=== PATIENT | male | born 1965 | race Caucasian/White ===

== ENCOUNTER 2018-11-06 16:56 | Observation (INO) | payer OTHER ==
--- NOTE | 2018-11-06 17:09 | EDM.PDOC ---
ED HPI GENERAL MEDICAL PROBLEM - General Chief Complaint: Lower Extremity Injury/Pain Stated Complaint: RIGHT LEG INJURY Time Seen by Provider: 11/06/18 17:09 Source of Information: Reports: Patient History Limitations: Reports: No Limitations - History of Present Illness INITIAL COMMENTS - FREE TEXT/NARRATIVE: HISTORY AND PHYSICAL: History of present illness: Patient is a 53-year-old male who presents to the emergency room with complaints of right lower extremity injury. He states last Saturday he had fallen on the ice landing on his right knee. He states he thought nothing of it but then to 3 days later he noticed some soft tissue swelling and pain below the right patella along the proximal tib-fib area. He associated this with his previous fall. He does have some swelling of the right lower extremity and enlarged lymph nodes in the right groin. He is weightbearing without any difficulty or deficits although it does cause some soft tissue pain at the site. He denies any fever, chills, chest pain, shortness of breath or cough. Denies any abdominal pain, nausea, vomiting, diarrhea, constipation or dysuria. Denies any previous history of diabetes or any complications or surgeries of the affected extremity. Review of systems: As per history of present illness and below otherwise all systems reviewed and negative. Past medical history: As per history of present illness and as reviewed below otherwise noncontributory. Surgical history: As per history of present illness and as reviewed below otherwise noncontributory. Social history: See social history for further information Family history: As per history of present illness and as reviewed below otherwise noncontributory. Physical exam: General: Well-developed and well-nourished 53-year-old male. Alert and oriented. Nontoxic appearing and in no acute distress. HEENT: Atraumatic, normocephalic, pupils equal and reactive bilaterally, negative for conjunctival pallor or scleral icterus, mucous membranes moist, TMs normal bilaterally, throat clear, neck supple, nontender, trachea midline. No drooling or trismus noted. No meningeal signs. No hot potato voice noted. Lungs: Clear to auscultation, breath sounds equal bilaterally, chest nontender. Heart: S1S2, regular rate and rhythm without overt murmur Abdomen: Soft, nondistended, nontender. Negative for masses or hepatosplenomegaly. Negative for costovertebral tenderness. Pelvis: Stable nontender. Genitourinary: Deferred. Rectal: Deferred. Skin: See EXTREMITY for details. Otherwise skin is intact, warm, dry. No lesions or rashes noted. Extremities: Moves all extremities per self without difficulty or deficits. He has no tenderness of the patella or popliteal surface. There is a localized area to the proximal tib-fib on the right inner leg which is swollen, warm to touch and erythematous. There is diffuse pinkish erythema of the surrounding tissue going into the calf and inner upper medial thigh. He has strong pedal pulse and pretibial pulses. Mild enlarged lymph node with tenderness to the right groin. He is negative for cords or calf pain. Neurovascular unremarkable. Neuro: Awake, alert, oriented. Cranial nerves II through XII unremarkable. Cerebellum unremarkable. Motor and sensory unremarkable throughout. Exam nonfocal. Notes: Dr. Garduno/Sean was consulted on this case. Dr Estrada came in and evaluated this patient. He will be admitted for observation for cellulitis treatment. Sean will enter antibiotic orders. Patient is aware and agreeable. Denies any further questions or concerns at this time Diagnostics: CBC, CMP, blood cultures 2, right knee x-ray Therapeutics: IV fluid, morphine, Zofran Impression: Cellulitis Plan: Observation admission to med/surg Definitive disposition and diagnosis as appropriate pending reevaluation and review of above. Duration: Day(s): - Related Data Allergies Allergy/AdvReac Type Severity Reaction Status Date / Time No Known Allergies Allergy Verified 11/06/18 17:15 Home Meds: Home Meds . [No Known Home Meds] 11/06/18 [History] Review of Systems - Review of Systems Review Of Systems: ROS reveals no pertinent complaints other than HPI. ED EXAM, GENERAL - Physical Exam Exam: See Below (See dication) Course - Vital Signs Last Recorded V/S: Last Vital Signs Temp 99.7 F 11/06/18 17:06 Pulse 84 11/06/18 17:06 Resp 20 11/06/18 17:06 BP 113/66 11/06/18 17:06 Pulse Ox 99 11/06/18 17:06 - Orders/Labs/Meds Orders: Active Orders 24 hr Category Date Time Status Admission Status [Patient Status] [ADT] Stat ADT 11/06/18 18:13 Active Communication Order [RC] STAT Care 11/06/18 17:28 Active COMPREHENSIVE METABOLIC PN,CMP [CHEM] Stat Lab 11/06/18 17:47 Received CULTURE BLOOD [BC] Stat Lab 11/06/18 17:27 Ordered CULTURE BLOOD [BC] Stat Lab 11/06/18 17:47 Received Sodium Chloride 0.9% [Normal Saline] 1,000 ml Med 11/06/18 17:27 Active IV STAT Blood Culture x2 Reflex Set [OM.PC] Stat Oth 11/06/18 17:27 Ordered Medication Orders Sodium Chloride (Normal Saline) 1,000 mls @ 999 mls/hr IV STAT ONE Stop: 11/06/18 18:27 Last Admin: 11/06/18 17:54 Dose: 999 mls/hr Labs: Laboratory Tests 11/06/18 Range/Units 17:47 WBC 12.34 H (4.0-11.0) K/uL RBC 4.90 (4.50-5.90) M/uL Hgb 14.7 (13.0-17.0) g/dL Hct 43.4 (38.0-50.0) % MCV 88.6 (80.0-98.0) fL MCH 30.0 (27.0-32.0) pg MCHC 33.9 (31.0-37.0) g/dL RDW Std Deviation 41.7 (28.0-62.0) fl RDW Coeff of Christina 13 (11.0-15.0) % Plt Count 285 (150-400) K/uL MPV 9.40 (7.40-12.00) fL Neut % (Auto) 71.5 (48.0-80.0) % Lymph % (Auto) 19.7 (16.0-40.0) % [place] % (Auto) 7.5 (0.0-15.0) % Eos % (Auto) 1.1 (0.0-7.0) % Baso % (Auto) 0.2 (0.0-1.5) % Neut # (Auto) 8.8 H (1.4-5.7) K/uL Lymph # (Auto) 2.4 (0.6-2.4) K/uL [place] # (Auto) 0.9 H (0.0-0.8) K/uL Eos # (Auto) 0.1 (0.0-0.7) K/uL Baso # (Auto) 0.0 (0.0-0.1) K/uL Nucleated RBC % 0.0 /100WBC Nucleated RBCs # 0 K/uL Meds: Medications Generic Name Dose Route Start Last Admin Trade Name Justine PRN Reason Stop Dose Admin Sodium Chloride 1,000 mls @ 999 mls/hr 11/06/18 17:27 11/06/18 17:54 Normal Saline IV 11/06/18 18:27 999 mls/hr STAT ONE Administration Discontinued Medications Generic Name Dose Route Start Last Admin Trade Name Justine PRN Reason Stop Dose Admin Morphine Sulfate 4 mg 11/06/18 17:27 11/06/18 17:52 Morphine IVPUSH 11/06/18 17:28 4 mg ONETIME ONE Administration Ondansetron HCl 4 mg 11/06/18 17:27 11/06/18 17:53 Zofran IVPUSH 11/06/18 17:28 4 mg ONETIME ONE Administration Departure - Departure Time of Disposition: 18:17 Disposition: Home, Self-Care 01 Clinical Impression: Cellulitis Qualifiers: Site of cellulitis: extremity Site of cellulitis of extremity: lower extremity Laterality: right Qualified Code(s): L03.115 - Cellulitis of right lower limb - Discharge Information Referrals: PCP,None [Primary Care Provider] - Forms: ED Department Discharge - My Orders Last 24 Hours: My Active Orders 11/06/18 17:27 CULTURE BLOOD [BC] Stat Sodium Chloride 0.9% [Normal Saline] 1,000 ml IV STAT Blood Culture x2 Reflex Set [OM.PC] Stat 11/06/18 17:28 Communication Order [RC] STAT 11/06/18 17:47 COMPREHENSIVE METABOLIC PN,CMP [CHEM] Stat CULTURE BLOOD [BC] Stat 11/06/18 18:13 Admission Status [Patient Status] [ADT] Stat - Assessment/Plan Last 24 Hours: My Active Orders 11/06/18 17:27 CULTURE BLOOD [BC] Stat Sodium Chloride 0.9% [Normal Saline] 1,000 ml IV STAT Blood Culture x2 Reflex Set [OM.PC] Stat 11/06/18 17:28 Communication Order [RC] STAT 11/06/18 17:47 COMPREHENSIVE METABOLIC PN,CMP [CHEM] Stat CULTURE BLOOD [BC] Stat 02/07/19 18:13 Admission Status [Patient Status] [ADT] Stat
[2018-11-06] MEDS ORDERED: Sodium Chloride 0.9% 1,000 ML IV ONE (17:27)
[2018-11-06] MEDS ORDERED: Morphine 4 MG/ML Syringe IVPUSH ONE (17:27)
[2018-11-06] MEDS ORDERED: Ondansetron 4 MG/2 ML SDV IVPUSH ONE (17:27)
--- NOTE | 2018-11-06 18:07 | CR ---
Indication: Fell October 31, 2018, now with redness, swelling, and fever Technique: Three views right knee Comparison: Nine Findings: Bones: Alignment is normal. No fractures or bone lesions. Joint spaces: Unremarkable. Soft tissues: Mild soft tissue swelling anteriorly. Impression: Mild anterior soft tissue swelling. No acute osseous abnormality or suprapatellar effusion.. Dictated by Heather Mcgraw MD @ Nov 06 2018 6:04PM Signed by Dr. Heather Mcgraw @ Nov 06 2018 6:06PM
[2018-11-06 18:22] LABS: CHLORIDE,CL 102 mmol/L (98-107); SODIUM,NA 138 mmol/L (136-148)
[2018-11-06] MEDS ORDERED: Enoxaparin 40 MG/0.4 ML Syringe SUBCUT SCH (18:30)
[2018-11-06] MEDS ORDERED: Nicotine 7 MG/24 Hr Patch TRDERM SCH (18:30)
[2018-11-06] MEDS ORDERED: cefTRIAXone 1 GM in Premix Bag 1 BAG IV SCH (18:30)
[2018-11-06] MEDS: Sodium Chloride 0.9% 1,000 ML IV SCH (18:56)
--- NOTE | 2018-11-06 19:15 | PCM.HP ---
<Bashir Estrada - Last Filed: 11/06/18 19:11> H&P History of Present Illness - General Date of Service: 11/06/18 Admit Problem/Dx: Admission Diagnosis/Problem Admission Diagnosis/Problem Cellulitis Source of Information: Patient History Limitations: Reports: No Limitations - History of Present Illness Initial Comments - Free Text/Narative: 53M hx of tobacco abuse presented to the ER w/ complaint of right anterior leg pain x2-3 days. He tells me that he had a slip and fall 3 days ago outside on ice and since then been getting worsening pain. Denies any head trauma or LOC. Complains of subjective fever. Denies any hx of cellulitis, IVDA, infectious history. Denies pain at the knee, is able to walk without issue. Denies numbness or tingling. - Related Data Allergies/Adverse Reactions: Allergies Allergy/AdvReac Type Severity Reaction Status Date / Time No Known Allergies Allergy Verified 11/07/18 00:10 Home Medications: Home Meds . [No Known Home Meds] 11/06/18 [History] Past Medical History - Past Health History Medical/Surgical History: Denies Medical/Surgical History - Infectious Disease History Infectious Disease History: Reports: Chicken Pox, Shingles - Past Surgical History Musculoskeletal Surgical History: Reports: Other (See Below) Other Musculoskeletal Surgeries/Procedures:: R shoulder rotar cuff sx Social & Family History - Tobacco Use Smoking Status *Q: Current Every Day Smoker Years of Tobacco use: 40 Packs/Tins Daily: 0.2 - Recreational Drug Use Recreational Drug Use: No H&P Review of Systems - Review of Systems: Review Of Systems: See Below General: Reports: Other (mild subjective fever) HEENT: Reports: No Symptoms Pulmonary: Reports: No Symptoms Cardiovascular: Reports: No Symptoms Gastrointestinal: Reports: No Symptoms Genitourinary: Reports: No Symptoms Musculoskeletal: Reports: Leg Pain, Other (see hpi) Skin: Reports: Erythema Psychiatric: Reports: No Symptoms Neurological: Reports: No Symptoms Hematologic/Lymphatic: Reports: No Symptoms Immunologic: Reports: No Symptoms Exam - Exam Exam: See Below - Vital Signs Vital Signs: Last Vital Signs Temp 37.6 C 11/06/18 17:06 Pulse 84 11/06/18 17:06 Resp 20 11/06/18 17:06 BP 113/66 11/06/18 17:06 Pulse Ox 99 02/07/19 17:06 Weight: 77.2 kg - Exam General: Alert, Oriented, 4 HEENT: PERRLA, Hearing Intact, Mucosa Moist & [place], Nares Patent, Normal Nasal Septum, Posterior Pharynx Clear, Conjunctiva Clear, EOMI, EACs Clear, TMs Clear Neck: Supple, Trachea Midline, 2 Lungs: Clear to Auscultation, Normal Respiratory Effort Cardiovascular: Regular Rate, Regular Rhythm GI/Abdominal Exam: Normal Bowel Sounds, Soft, Non-Tender, No Organomegaly, No Distention, No Abnormal Bruit, No Mass, Pelvis Stable Back Exam: Normal Inspection, Full Range of Motion, NT Extremities: Other (anterior aspect of leg has erythema extending distally starting below the knee. Not involving the knee. Tender to palpation, is flat, no abscess formation. No calf tenderness. Able to flex at the knee without complaints. No pedal edema. Sensation in feet intact. Dorsalis pedis pulse 2+) Peripheral Pulses: 2+: Dorsalis Pedis (L), Dorsalis Pedis (R) Skin: Other (see extremities ) Neurological: Cranial Nerves Intact, Reflexes Equal Bilateral Neuro Extensive - Mental Status: Alert, Oriented x3, Normal Mood/Affect, Normal Cognition Neuro Extensive - Motor, Sensory, Reflexes: CN II-XII Intact, Normal Gait, Normal Reflexes DTR: 2+: Patella (L), Patella (R), Achilles (L), Achilles (R) Psychiatric: Alert, Normal Affect, Normal Mood - Patient Data Lab Results Last 24 hrs: Laboratory Results - last 24 hr 11/06/18 11/06/18 Range/Units 17:47 17:47 WBC 12.34 H (4.0-11.0) K/uL RBC 4.90 (4.50-5.90) M/uL Hgb 14.7 (13.0-17.0) g/dL Hct 43.4 (38.0-50.0) % MCV 88.6 (80.0-98.0) fL MCH 30.0 (27.0-32.0) pg MCHC 33.9 (31.0-37.0) g/dL RDW Std Deviation 41.7 (28.0-62.0) fl RDW Coeff of Christina 13 (11.0-15.0) % Plt Count 285 (150-400) K/uL MPV 9.40 (7.40-12.00) fL Neut % (Auto) 71.5 (48.0-80.0) % Lymph % (Auto) 19.7 (16.0-40.0) % [place] % (Auto) 7.5 (0.0-15.0) % Eos % (Auto) 1.1 (0.0-7.0) % Baso % (Auto) 0.2 (0.0-1.5) % Neut # (Auto) 8.8 H (1.4-5.7) K/uL Lymph # (Auto) 2.4 (0.6-2.4) K/uL [place] # (Auto) 0.9 H (0.0-0.8) K/uL Eos # (Auto) 0.1 (0.0-0.7) K/uL Baso # (Auto) 0.0 (0.0-0.1) K/uL Nucleated RBC % 0.0 /100WBC Nucleated RBCs # 0 K/uL Sodium 138 (136-148) mmol/L Potassium 4.5 (3.5-5.1) mmol/L Chloride 102 (98-107) mmol/L Carbon Dioxide 26.7 (21.0-32.0) mmol/L BUN 12 (7.0-18.0) mg/dL Creatinine 1.1 (0.8-1.3) mg/dL Est Cr Clr Drug Dosing 81.11 mL/min Estimated GFR (MDRD) > 60.0 ml/min Glucose 95 (74-106) mg/dL Calcium 9.0 (8.5-10.1) mg/dL Total Bilirubin 0.5 (0.2-1.0) mg/dL AST 30 (15-37) IU/L ALT 75 H (14-63) IU/L Alkaline Phosphatase 76 (46-116) U/L Total Protein 6.8 (6.4-8.2) g/dL Albumin 3.1 L (3.4-5.0) g/dL Globulin 3.7 (2.6-4.0) g/dL Albumin/Globulin Ratio 0.8 L (0.9-1.6) Result Diagrams: 11/06/18 17:47 11/06/18 17:47 Problem List Initiated/Reviewed/Updated: Yes Orders Last 24hrs: Active Orders 24 hr Category Date Time Status Admission Status [Patient Status] [ADT] Stat ADT 11/06/18 18:13 Active Communication Order [RC] STAT Care 11/06/18 17:28 Active Oxygen Therapy [RC] PRN Care 11/06/18 18:20 Active Up ad Maryellen [RC] ASDIRECTED Care 11/06/18 18:19 Active VTE/DVT Education [RC] PER UNIT ROUTINE Care 11/06/18 18:20 Active Vital Signs [RC] Q4H Care 11/06/18 18:20 Active Regular Diet [DIET] Diet 11/06/18 Lunch Active BASIC METABOLIC PANEL,BMP [CHEM] AM Lab 11/07/18 05:11 Ordered CBC WITH AUTO DIFF [HEME] AM Lab 11/07/18 05:11 Ordered CULTURE BLOOD [BC] Stat Lab 11/06/18 17:47 Received CULTURE BLOOD [BC] Stat Lab 11/06/18 17:59 Received Acetaminophen [Tylenol] Med 11/06/18 18:19 Active 650 mg PO Q4H PRN Enoxaparin [Lovenox] Med 11/06/18 18:30 Active 40 mg SUBCUT Q24H Nicotine [Habitrol] Med 11/06/18 18:30 Active 7 mg TRDERM DAILY Sodium Chloride 0.9% [Normal Saline] 1,000 ml Med 11/06/18 18:30 Active IV ASDIRECTED cefTRIAXone [Rocephin in Dextrose,Iso-Osm 1 GM/50 ML] 1 Med 11/06/18 18:30 Active gm Premix Bag 1 bag IV DAILY oxyCODONE Med 11/06/18 18:19 Active 5 mg PO Q4H PRN Blood Culture x2 Reflex Set [OM.PC] Stat Oth 11/06/18 17:27 Ordered Resuscitation Status Routine Resus Stat 11/06/18 18:19 Ordered Medication Orders Acetaminophen (Tylenol) 650 mg PO Q4H PRN PRN Reason: Pain (Mild 1-3)/fever Enoxaparin Sodium (Lovenox) 40 mg SUBCUT Q24H [facility] Last Admin: 11/06/18 18:57 Dose: 40 mg Ceftriaxone Sodium/Dextrose 1 (gm/ Premix) 50 mls @ 100 mls/hr IV DAILY [facility] Last Admin: 11/06/18 18:56 Dose: 100 mls/hr Sodium Chloride (Normal Saline) 1,000 mls @ 100 mls/hr IV ASDIRECTED [facility] Last Admin: 11/06/18 18:56 Dose: 100 mls/hr Nicotine (Habitrol) 7 mg TRDERM DAILY [facility] Oxycodone HCl (Oxycodone) 5 mg PO Q4H PRN PRN Reason: Pain (moderate 4-6) Assessment/Plan Comment:: Assessment: #1. R leg cellulitis #2. Leukocytosis #3. Mild fever Plan: #1. Admit for observation. Vitals per floor. Lovenox for DVT Prophylaxis. Regular diet #2. IV rocephin 1g q24h #3. Pain meds as ordered #4. Repeat cbc, bmp tomorrow AM #5. Anticipate dc 1-2 days. <Maksim Garduno - Last Filed: 11/07/18 07:45> H&P History of Present Illness - General Admit Problem/Dx: Admission Diagnosis/Problem Admission Diagnosis/Problem Cellulitis I have seen and examined the patient independently of Karla Estrada MD, biomedical equipment specialist.I have discussed the case with the resident. I agree with the assessment and plan of care as outlined for this patient. Please see orders. Patient here with cellulitis of lower extremity. Right Knee Pain Score (Numeric/FACES): 7 Exam - Vital Signs Vital Signs: Last Vital Signs Temp 37.8 C 11/07/18 04:30 Pulse 79 11/07/18 04:20 Resp 22 H 11/07/18 04:20 BP 117/74 11/07/18 04:20 Pulse Ox 99 11/07/18 04:20 - Patient Data Lab Results Last 24 hrs: Laboratory Results - last 24 hr 11/06/18 11/06/18 11/07/18 Range/Units 17:47 17:47 05:25 WBC 12.34 H 12.83 H (4.0-11.0) K/uL RBC 4.90 4.57 (4.50-5.90) M/uL Hgb 14.7 13.6 (13.0-17.0) g/dL Hct 43.4 41.0 (38.0-50.0) % MCV 88.6 89.7 (80.0-98.0) fL MCH 30.0 29.8 (27.0-32.0) pg MCHC 33.9 33.2 (31.0-37.0) g/dL RDW Std Deviation 41.7 42.9 (28.0-62.0) fl RDW Coeff of Christina 13 13 (11.0-15.0) % Plt Count 285 264 (150-400) K/uL MPV 9.40 9.30 (7.40-12.00) fL Neut % (Auto) 71.5 74.3 (48.0-80.0) % Lymph % (Auto) 19.7 15.6 L (16.0-40.0) % [place] % (Auto) 7.5 8.3 (0.0-15.0) % Eos % (Auto) 1.1 1.6 (0.0-7.0) % Baso % (Auto) 0.2 0.2 (0.0-1.5) % Neut # (Auto) 8.8 H 9.5 H (1.4-5.7) K/uL Lymph # (Auto) 2.4 2.0 (0.6-2.4) K/uL [place] # (Auto) 0.9 H 1.1 H (0.0-0.8) K/uL Eos # (Auto) 0.1 0.2 (0.0-0.7) K/uL Baso # (Auto) 0.0 0.0 (0.0-0.1) K/uL Nucleated RBC % 0.0 0.0 /100WBC Nucleated RBCs # 0 0 K/uL Sodium 138 (136-148) mmol/L Potassium 4.5 (3.5-5.1) mmol/L Chloride 102 (98-107) mmol/L Carbon Dioxide 26.7 (21.0-32.0) mmol/L BUN 12 (7.0-18.0) mg/dL Creatinine 1.1 (0.8-1.3) mg/dL Est Cr Clr Drug Dosing 81.11 mL/min Estimated GFR (MDRD) > 60.0 ml/min Glucose 95 (74-106) mg/dL Calcium 9.0 (8.5-10.1) mg/dL Total Bilirubin 0.5 (0.2-1.0) mg/dL AST 30 (15-37) IU/L ALT 75 H (14-63) IU/L Alkaline Phosphatase 76 (46-116) U/L Total Protein 6.8 (6.4-8.2) g/dL Albumin 3.1 L (3.4-5.0) g/dL Globulin 3.7 (2.6-4.0) g/dL Albumin/Globulin Ratio 0.8 L (0.9-1.6) 11/07/18 Range/Units 05:25 WBC (4.0-11.0) K/uL RBC (4.50-5.90) M/uL Hgb (13.0-17.0) g/dL Hct (38.0-50.0) % MCV (80.0-98.0) fL MCH (27.0-32.0) pg MCHC (31.0-37.0) g/dL RDW Std Deviation (28.0-62.0) fl RDW Coeff of Christina (11.0-15.0) % Plt Count (150-400) K/uL MPV (7.40-12.00) fL Neut % (Auto) (48.0-80.0) % Lymph % (Auto) (16.0-40.0) % [place] % (Auto) (0.0-15.0) % Eos % (Auto) (0.0-7.0) % Baso % (Auto) (0.0-1.5) % Neut # (Auto) (1.4-5.7) K/uL Lymph # (Auto) (0.6-2.4) K/uL [place] # (Auto) (0.0-0.8) K/uL Eos # (Auto) (0.0-0.7) K/uL Baso # (Auto) (0.0-0.1) K/uL Nucleated RBC % /100WBC Nucleated RBCs # K/uL Sodium 138 (136-148) mmol/L Potassium 4.6 (3.5-5.1) mmol/L Chloride 105 (98-107) mmol/L Carbon Dioxide 27.5 (21.0-32.0) mmol/L BUN 11 (7.0-18.0) mg/dL Creatinine 1.1 (0.8-1.3) mg/dL Est Cr Clr Drug Dosing 81.11 mL/min Estimated GFR (MDRD) > 60.0 ml/min Glucose 112 H (74-106) mg/dL Calcium 8.1 L (8.5-10.1) mg/dL Total Bilirubin (0.2-1.0) mg/dL AST (15-37) IU/L ALT (14-63) IU/L Alkaline Phosphatase (46-116) U/L Total Protein (6.4-8.2) g/dL Albumin (3.4-5.0) g/dL Globulin (2.6-4.0) g/dL Albumin/Globulin Ratio (0.9-1.6) Result Diagrams: 11/07/18 05:25 11/07/18 05:25 Orders Last 24hrs: Active Orders 24 hr Category Date Time Status Admission Status [Patient Status] [ADT] Stat ADT 11/06/18 18:13 Active Oxygen Therapy [RC] PRN Care 11/06/18 18:20 Active Up ad Maryellen [RC] ASDIRECTED Care 11/06/18 18:19 Active Regular Diet [DIET] Diet 11/06/18 Lunch Active CULTURE BLOOD [BC] Stat Lab 11/06/18 17:47 Received CULTURE BLOOD [BC] Stat Lab 11/06/18 17:59 Received Acetaminophen [Tylenol] Med 11/06/18 18:19 Active 650 mg PO Q4H PRN Enoxaparin [Lovenox] Med 11/06/18 18:30 Active 40 mg SUBCUT Q24H Nicotine [Habitrol] Med 11/06/18 18:30 Active 7 mg TRDERM DAILY Sodium Chloride 0.9% [Normal Saline] 1,000 ml Med 11/06/18 18:30 Active IV ASDIRECTED cefTRIAXone [Rocephin in Dextrose,Iso-Osm 1 GM/50 ML] 1 Med 11/06/18 18:30 Active gm Premix Bag 1 bag IV DAILY oxyCODONE Med 11/06/18 18:19 Active 5 mg PO Q4H PRN Blood Culture x2 Reflex Set [OM.PC] Stat Oth 11/06/18 17:27 Ordered Resuscitation Status Routine Resus Stat 11/06/18 18:19 Ordered Medication Orders Acetaminophen (Tylenol) 650 mg PO Q4H PRN PRN Reason: Pain (Mild 1-3)/fever Last Admin: 11/07/18 04:30 Dose: 650 mg Enoxaparin Sodium (Lovenox) 40 mg SUBCUT Q24H [facility] Last Admin: 11/06/18 18:57 Dose: 40 mg Ceftriaxone Sodium/Dextrose 1 (gm/ Premix) 50 mls @ 100 mls/hr IV DAILY [facility] Last Admin: 11/06/18 18:56 Dose: 100 mls/hr Sodium Chloride (Normal Saline) 1,000 mls @ 100 mls/hr IV ASDIRECTED [facility] Last Admin: 11/07/18 04:18 Dose: 100 mls/hr Infusion: 11/07/18 04:18 Dose: 100 mls/hr Admin: 11/06/18 18:56 Dose: 100 mls/hr Nicotine (Habitrol) 7 mg TRDERM DAILY [facility] Last Admin: 11/06/18 21:03 Dose: Not Given Oxycodone HCl (Oxycodone) 5 mg PO Q4H PRN PRN Reason: Pain (moderate 4-6) Last Admin: 11/07/18 04:16 Dose: 5 mg Admin: 11/06/18 21:07 Dose: 5 mg
[2018-11-06] MEDS: oxyCODONE 5 MG Tab PO PRN (21:07)
[2018-11-07] MEDS: oxyCODONE 5 MG Tab PO PRN ×2 (04:16→08:25)
[2018-11-07] MEDS: Sodium Chloride 0.9% 1,000 ML IV SCH (04:18)
[2018-11-07] MEDS: Acetaminophen 325 MG Tab PO PRN ×2 (04:30→11:39)
[2018-11-07 05:59] LABS: CHLORIDE,CL 105 mmol/L (98-107); SODIUM,NA 138 mmol/L (136-148)
--- NOTE | 2018-11-07 11:46 | PCM.DCSUM1 ---
<Bashir Estrada - Last Filed: 11/07/18 11:43> Discharge Summary - Hospital Course Free Text/Narrative:: Admission date: 11/06/2018 Discharge date: 11/07/2018 Admission diagnosis: #1. R leg cellulitis #2. Mild leukocytosis #3. Subjective fever Discharge diagnosis: #1. R leg cellulitis - improving #2. Mild leukocytosis #3. Subjective fever - resolved Hospital course: 53M with hx of tobacco abuse, recent fall who was admitted for R leg pain found to have a R leg cellulitis involving the anterior aspect of the leg distal to the knee. A pen line was drawn at the time of presentation. Patient was admitted and treated w/ IV rocephin, fluids, pain control. The next morning, the patients pain had subsided, he denied any fever, and the extent of the erythema had decreased considerably. I discharged this patient home with return precautions including worsening pain, erythema, fever. He is to continue on PO keflex and f/u with a PCP. - Discharge Data Discharge Date: 11/07/18 Discharge Disposition: Home, Self-Care 01 Condition: Good - Patient Instructions Diet: Usual Diet as Tolerated Activity: As Tolerated Driving: May Drive Today Showering/Bathing: May Shower Notify Provider of: Fever, Increased Pain, Swelling and Redness, Drainage, Nausea and/or Vomiting - Discharge Plan Prescriptions/Med Rec: Cephalexin [Keflex] 500 mg PO Q12H 7 Days #7 capsule Home Medications: Home Meds Cephalexin [Keflex] 500 mg PO Q12H 7 Days #7 capsule 11/07/18 [Rx] Patient Handouts: Cellulitis, Adult, [id number], Cephalexin tablets or capsules Referrals: [facility] [Outside] Yris Martin PA [Physician [employer]] - 11/14/18 8:00 am - Discharge Summary/Plan Comment DC Time >30 min.: No - Patient Data Vitals - Most Recent: Last Vital Signs Temp 37.2 C 11/07/18 08:00 Pulse 73 11/07/18 08:00 Resp 19 11/07/18 08:00 BP 108/67 11/07/18 08:00 Pulse Ox 97 11/07/18 08:00 Weight - Most Recent: 73.663 kg I&O - Last 24 hours: Intake & Output 11/06/18 11/07/18 11/07/18 22:59 06:59 14:59 Intake Total 1800 Output Total 400 Balance 1400 Lab Results - Last 24 hrs: Laboratory Results - last 24 hr 11/06/18 11/06/18 11/07/18 Range/Units 17:47 17:47 05:25 WBC 12.34 H 12.83 H (4.0-11.0) K/uL RBC 4.90 4.57 (4.50-5.90) M/uL Hgb 14.7 13.6 (13.0-17.0) g/dL Hct 43.4 41.0 (38.0-50.0) % MCV 88.6 89.7 (80.0-98.0) fL MCH 30.0 29.8 (27.0-32.0) pg MCHC 33.9 33.2 (31.0-37.0) g/dL RDW Std Deviation 41.7 42.9 (28.0-62.0) fl RDW Coeff of Christina 13 13 (11.0-15.0) % Plt Count 285 264 (150-400) K/uL MPV 9.40 9.30 (7.40-12.00) fL Neut % (Auto) 71.5 74.3 (48.0-80.0) % Lymph % (Auto) 19.7 15.6 L (16.0-40.0) % Mcduffie % (Auto) 7.5 8.3 (0.0-15.0) % Eos % (Auto) 1.1 1.6 (0.0-7.0) % Baso % (Auto) 0.2 0.2 (0.0-1.5) % Neut # (Auto) 8.8 H 9.5 H (1.4-5.7) K/uL Lymph # (Auto) 2.4 2.0 (0.6-2.4) K/uL Mcduffie # (Auto) 0.9 H 1.1 H (0.0-0.8) K/uL Eos # (Auto) 0.1 0.2 (0.0-0.7) K/uL Baso # (Auto) 0.0 0.0 (0.0-0.1) K/uL Nucleated RBC % 0.0 0.0 /100WBC Nucleated RBCs # 0 0 K/uL Sodium 138 (136-148) mmol/L Potassium 4.5 (3.5-5.1) mmol/L Chloride 102 (98-107) mmol/L Carbon Dioxide 26.7 (21.0-32.0) mmol/L BUN 12 (7.0-18.0) mg/dL Creatinine 1.1 (0.8-1.3) mg/dL Est Cr Clr Drug Dosing 81.11 mL/min Estimated GFR (MDRD) > 60.0 ml/min Glucose 95 (74-106) mg/dL Calcium 9.0 (8.5-10.1) mg/dL Total Bilirubin 0.5 (0.2-1.0) mg/dL AST 30 (15-37) IU/L ALT 75 H (14-63) IU/L Alkaline Phosphatase 76 (46-116) U/L Total Protein 6.8 (6.4-8.2) g/dL Albumin 3.1 L (3.4-5.0) g/dL Globulin 3.7 (2.6-4.0) g/dL Albumin/Globulin Ratio 0.8 L (0.9-1.6) 11/07/18 Range/Units 05:25 WBC (4.0-11.0) K/uL RBC (4.50-5.90) M/uL Hgb (13.0-17.0) g/dL Hct (38.0-50.0) % MCV (80.0-98.0) fL MCH (27.0-32.0) pg MCHC (31.0-37.0) g/dL RDW Std Deviation (28.0-62.0) fl RDW Coeff of Christina (11.0-15.0) % Plt Count (150-400) K/uL MPV (7.40-12.00) fL Neut % (Auto) (48.0-80.0) % Lymph % (Auto) (16.0-40.0) % Mcduffie % (Auto) (0.0-15.0) % Eos % (Auto) (0.0-7.0) % Baso % (Auto) (0.0-1.5) % Neut # (Auto) (1.4-5.7) K/uL Lymph # (Auto) (0.6-2.4) K/uL Mcduffie # (Auto) (0.0-0.8) K/uL Eos # (Auto) (0.0-0.7) K/uL Baso # (Auto) (0.0-0.1) K/uL Nucleated RBC % /100WBC Nucleated RBCs # K/uL Sodium 138 (136-148) mmol/L Potassium 4.6 (3.5-5.1) mmol/L Chloride 105 (98-107) mmol/L Carbon Dioxide 27.5 (21.0-32.0) mmol/L BUN 11 (7.0-18.0) mg/dL Creatinine 1.1 (0.8-1.3) mg/dL Est Cr Clr Drug Dosing 81.11 mL/min Estimated GFR (MDRD) > 60.0 ml/min Glucose 112 H (74-106) mg/dL Calcium 8.1 L (8.5-10.1) mg/dL Total Bilirubin (0.2-1.0) mg/dL AST (15-37) IU/L ALT (14-63) IU/L Alkaline Phosphatase (46-116) U/L Total Protein (6.4-8.2) g/dL Albumin (3.4-5.0) g/dL Globulin (2.6-4.0) g/dL Albumin/Globulin Ratio (0.9-1.6) Med Orders - Current: Current Medications Acetaminophen (Tylenol) 650 mg PO Q4H PRN PRN Reason: Pain (Mild 1-3)/fever Last Admin: 11/07/18 11:39 Dose: 650 mg Enoxaparin Sodium (Lovenox) 40 mg SUBCUT Q24H [facility] Last Admin: 11/06/18 18:57 Dose: 40 mg Sodium Chloride (Normal Saline) 1,000 mls @ 100 mls/hr IV ASDIRECTED [facility] Last Admin: 11/07/18 04:18 Dose: 100 mls/hr Ceftriaxone Sodium 1 gm/ (Sodium Chloride) 50 mls @ 100 mls/hr IV Q24H [facility] Nicotine (Habitrol) 7 mg TRDERM Q24H [facility] Oxycodone HCl (Oxycodone) 5 mg PO Q4H PRN PRN Reason: Pain (moderate 4-6) Last Admin: 11/07/18 08:25 Dose: 5 mg Discontinued Medications Sodium Chloride (Normal Saline) 1,000 mls @ 999 mls/hr IV STAT ONE Stop: 11/06/18 18:27 Last Admin: 11/06/18 17:54 Dose: 999 mls/hr Ceftriaxone Sodium/Dextrose 1 (gm/ Premix) 50 mls @ 100 mls/hr IV DAILY [facility] Last Admin: 11/06/18 18:56 Dose: 100 mls/hr Morphine Sulfate (Morphine) 4 mg IVPUSH ONETIME ONE Stop: 11/06/18 17:28 Last Admin: 11/06/18 17:52 Dose: 4 mg Nicotine (Habitrol) 7 mg TRDERM DAILY [facility] Last Admin: 11/06/18 21:03 Dose: Not Given Ondansetron HCl (Zofran) 4 mg IVPUSH ONETIME ONE Stop: 11/06/18 17:28 Last Admin: 11/06/18 17:53 Dose: 4 mg <Maksim Garduno - Last Filed: 11/07/18 12:40> Discharge Summary - Hospital Course Free Text/Narrative:: I have examined the patient independently of Bashir Estrada MD, medical doctor nuclear medicine. I have discussed the case with the resident. I agree with the assessment and plan of care as outlined for this patient by the resident. Please see orders. - Patient Data Vitals - Most Recent: Last Vital Signs Temp 37.2 C 11/07/18 08:00 Pulse 73 11/07/18 08:00 Resp 19 11/07/18 08:00 BP 108/67 11/07/18 08:00 Pulse Ox 97 11/07/18 08:00 I&O - Last 24 hours: Intake & Output 11/06/18 11/07/18 11/07/18 22:59 06:59 14:59 Intake Total 1800 Output Total 400 Balance 1400 Lab Results - Last 24 hrs: Laboratory Results - last 24 hr 11/06/18 11/06/18 11/07/18 Range/Units 17:47 17:47 05:25 WBC 12.34 H 12.83 H (4.0-11.0) K/uL RBC 4.90 4.57 (4.50-5.90) M/uL Hgb 14.7 13.6 (13.0-17.0) g/dL Hct 43.4 41.0 (38.0-50.0) % MCV 88.6 89.7 (80.0-98.0) fL MCH 30.0 29.8 (27.0-32.0) pg MCHC 33.9 33.2 (31.0-37.0) g/dL RDW Std Deviation 41.7 42.9 (28.0-62.0) fl RDW Coeff of Christina 13 13 (11.0-15.0) % Plt Count 285 264 (150-400) K/uL MPV 9.40 9.30 (7.40-12.00) fL Neut % (Auto) 71.5 74.3 (48.0-80.0) % Lymph % (Auto) 19.7 15.6 L (16.0-40.0) % Mcduffie % (Auto) 7.5 8.3 (0.0-15.0) % Eos % (Auto) 1.1 1.6 (0.0-7.0) % Baso % (Auto) 0.2 0.2 (0.0-1.5) % Neut # (Auto) 8.8 H 9.5 H (1.4-5.7) K/uL Lymph # (Auto) 2.4 2.0 (0.6-2.4) K/uL Mcduffie # (Auto) 0.9 H 1.1 H (0.0-0.8) K/uL Eos # (Auto) 0.1 0.2 (0.0-0.7) K/uL Baso # (Auto) 0.0 0.0 (0.0-0.1) K/uL Nucleated RBC % 0.0 0.0 /100WBC Nucleated RBCs # 0 0 K/uL Sodium 138 (136-148) mmol/L Potassium 4.5 (3.5-5.1) mmol/L Chloride 102 (98-107) mmol/L Carbon Dioxide 26.7 (21.0-32.0) mmol/L BUN 12 (7.0-18.0) mg/dL Creatinine 1.1 (0.8-1.3) mg/dL Est Cr Clr Drug Dosing 81.11 mL/min Estimated GFR (MDRD) > 60.0 ml/min Glucose 95 (74-106) mg/dL Calcium 9.0 (8.5-10.1) mg/dL Total Bilirubin 0.5 (0.2-1.0) mg/dL AST 30 (15-37) IU/L ALT 75 H (14-63) IU/L Alkaline Phosphatase 76 (46-116) U/L Total Protein 6.8 (6.4-8.2) g/dL Albumin 3.1 L (3.4-5.0) g/dL Globulin 3.7 (2.6-4.0) g/dL Albumin/Globulin Ratio 0.8 L (0.9-1.6) 11/07/18 Range/Units 05:25 WBC (4.0-11.0) K/uL RBC (4.50-5.90) M/uL Hgb (13.0-17.0) g/dL Hct (38.0-50.0) % MCV (80.0-98.0) fL MCH (27.0-32.0) pg MCHC (31.0-37.0) g/dL RDW Std Deviation (28.0-62.0) fl RDW Coeff of Christina (11.0-15.0) % Plt Count (150-400) K/uL MPV (7.40-12.00) fL Neut % (Auto) (48.0-80.0) % Lymph % (Auto) (16.0-40.0) % Mcduffie % (Auto) (0.0-15.0) % Eos % (Auto) (0.0-7.0) % Baso % (Auto) (0.0-1.5) % Neut # (Auto) (1.4-5.7) K/uL Lymph # (Auto) (0.6-2.4) K/uL Mcduffie # (Auto) (0.0-0.8) K/uL Eos # (Auto) (0.0-0.7) K/uL Baso # (Auto) (0.0-0.1) K/uL Nucleated RBC % /100WBC Nucleated RBCs # K/uL Sodium 138 (136-148) mmol/L Potassium 4.6 (3.5-5.1) mmol/L Chloride 105 (98-107) mmol/L Carbon Dioxide 27.5 (21.0-32.0) mmol/L BUN 11 (7.0-18.0) mg/dL Creatinine 1.1 (0.8-1.3) mg/dL Est Cr Clr Drug Dosing 81.11 mL/min Estimated GFR (MDRD) > 60.0 ml/min Glucose 112 H (74-106) mg/dL Calcium 8.1 L (8.5-10.1) mg/dL Total Bilirubin (0.2-1.0) mg/dL AST (15-37) IU/L ALT (14-63) IU/L Alkaline Phosphatase (46-116) U/L Total Protein (6.4-8.2) g/dL Albumin (3.4-5.0) g/dL Globulin (2.6-4.0) g/dL Albumin/Globulin Ratio (0.9-1.6) Med Orders - Current: Current Medications Acetaminophen (Tylenol) 650 mg PO Q4H PRN PRN Reason: Pain (Mild 1-3)/fever Last Admin: 11/07/18 11:39 Dose: 650 mg Enoxaparin Sodium (Lovenox) 40 mg SUBCUT Q24H [facility] Last Admin: 11/06/18 18:57 Dose: 40 mg Sodium Chloride (Normal Saline) 1,000 mls @ 100 mls/hr IV ASDIRECTED [facility] Last Admin: 11/07/18 04:18 Dose: 100 mls/hr Ceftriaxone Sodium 1 gm/ (Sodium Chloride) 50 mls @ 100 mls/hr IV Q24H [facility] Nicotine (Habitrol) 7 mg TRDERM Q24H [facility] Oxycodone HCl (Oxycodone) 5 mg PO Q4H PRN PRN Reason: Pain (moderate 4-6) Last Admin: 11/07/18 08:25 Dose: 5 mg Discontinued Medications Sodium Chloride (Normal Saline) 1,000 mls @ 999 mls/hr IV STAT ONE Stop: 11/06/18 18:27 Last Admin: 11/06/18 17:54 Dose: 999 mls/hr Ceftriaxone Sodium/Dextrose 1 (gm/ Premix) 50 mls @ 100 mls/hr IV DAILY [facility] Last Admin: 11/06/18 18:56 Dose: 100 mls/hr Morphine Sulfate (Morphine) 4 mg IVPUSH ONETIME ONE Stop: 11/06/18 17:28 Last Admin: 11/06/18 17:52 Dose: 4 mg Nicotine (Habitrol) 7 mg TRDERM DAILY [facility] Last Admin: 11/06/18 21:03 Dose: Not Given Ondansetron HCl (Zofran) 4 mg IVPUSH ONETIME ONE Stop: 11/06/18 17:28 Last Admin: 11/06/18 17:53 Dose: 4 mg
[2018-11-07] MEDS ORDERED: cefTRIAXone 1 GM in Sodium Chloride 0.9% 50 ML IV SCH (18:30)
[2018-11-07] MEDS ORDERED: Nicotine 7 MG/24 Hr Patch TRDERM SCH (18:30)
== END 2018-11-07 12:00 | disposition home or self-care (01) ==
LOC: MW.ED 16:56 → MW.MS 18:13
PROVIDERS: ADMIT Internal Medicine; ATTEND Internal Medicine
DX: L03.115 Cellulitis of right lower limb (principal); D72.829 Elevated white blood cell count, unspecified; F17.200 Nicotine dependence, unspecified, uncomplicated; W00.0XXA Fall on same level due to ice and snow, initial encounter
CPT/HCPCS: 36415; 73562; 80048; 80053; 85025; 87040; 96361; 96365; 96372; 96375; 99284; A9270; J0696; J1650; J2270; J2405; J7040; G0378